=== PATIENT | male | born 1965 | race Caucasian/White ===

== ENCOUNTER 2019-12-17 10:34 | Outpatient (REF) | payer OTHER, SELFPAY | END 2019-12-17 10:35 | disposition home or self-care (01) | LOC: HO.LAB 10:34 | PROVIDERS: PCP Internal Medicine; Visit Provider Internal Medicine | DX: Z20.828 Contact with and (suspected) exposure to other viral communicable diseases (principal) | CPT/HCPCS: 87635 ==

== ENCOUNTER 2019-12-20 08:15 | Outpatient (REF) | payer OTHER, SELFPAY ==
[2019-12-20 09:45] LABS: HBS Num1 1.93 mIU/mL (0-7.99); HBc Num1 0.04 S/CO (0.00-0.79); HBsAGNum1 0.23 S/CO (0.00-0.99); HIV AB/AG Nonreactive (Nonreactive); HIV Num 1 0.08 S/CO (0.00-0.99); Hepatitis B Core Antibody Nonreactive (Nonreactive); Hepatitis B Surface Antigen Negative (Negative); ~Hepatitis B Surface Antibody NONREACTIVE (Nonreactive)
[2019-12-20 11:50] LABS: CT PCR NOT DETECTED (Not Detect.); NG PCR NOT DETECTED (Not Detect.)
[2019-12-21 04:27] LABS: Syphilis Screen Nonreactive (Nonreactive)
[2019-12-26 17:07] LABS: FIB-ALT 28 U/L (9-46); FIB-Alpha-2-Macroglobulin 251 mg/dL (106-279); FIB-Apolipoprotein A1 153 mg/dL (94-176); FIB-GGT 29 U/L (3-85); FIB-Haptoglobin 82 mg/dL (43-212); FIB-Total Bilirubin 0.8 mg/dL (0.2-1.2); Liver Fibrosis Score 0.48; Liver Fibrosis Stage F1-F2; Nec Inflam Act Grade A0; Nec Inflam Act Score 0.17
[2020-04-30 11:32] LABS: HCV Log PCR <1.18 NOT DETECTED; HepC Viral Load <15 NOT DETECTED
== END 2019-12-20 08:16 | disposition home or self-care (01) ==
LOC: HO.LAB 08:15
PROVIDERS: PCP Internal Medicine; Visit Provider Internal Medicine Infectious Disease
DX: B19.20 Unspecified viral hepatitis C without hepatic coma (principal); Z11.8 Encounter for screening for other infectious and parasitic diseases; Z11.4 Encounter for screening for human immunodeficiency virus [HIV]; Z11.59 Encounter for screening for other viral diseases; Z11.1 Encounter for screening for respiratory tuberculosis; Z11.3 Encounter for screening for infections with a predominantly sexual mode of transmission
CPT/HCPCS: 36415; 81596; 86481; 86704; 86706; 86780; 87340; 87389; 87491; 87522; 87591

== ENCOUNTER → 2020-03-03 09:53 | Outpatient (BNVA) | payer OTHER, SELFPAY | PROVIDERS: PCP Internal Medicine; Referring Provider Internal Medicine; Visit Provider Internal Medicine Gastroenterology | DX: Z76.89 Persons encountering health services in other specified circumstances (principal) ==

== ENCOUNTER → 2020-05-07 10:39 | Outpatient (BNVA) | payer OTHER, SELFPAY | PROVIDERS: PCP Internal Medicine; Visit Provider Internal Medicine Gastroenterology ==

== ENCOUNTER 2020-05-19 11:30 | Outpatient (REF) | payer OTHER, SELFPAY | END 2020-05-19 11:31 | disposition home or self-care (01) | LOC: HO.LAB 11:30 | PROVIDERS: Visit Provider Internal Medicine | DX: Z20.822 Contact with and (suspected) exposure to COVID-19 (principal) | CPT/HCPCS: 36415; C9803; U0003; U0005 ==

== ENCOUNTER 2020-05-29 08:45 | Outpatient (REF) | payer OTHER, SELFPAY ==
[2020-05-29 12:41] LABS: SARS COV2 PCR INHOUSE POSITIVE (Negative)
== END 2020-05-29 08:46 | disposition home or self-care (01) ==
LOC: HO.LAB 08:45
PROVIDERS: Visit Provider Internal Medicine
DX: Z20.822 Contact with and (suspected) exposure to COVID-19 (principal)
CPT/HCPCS: C9803; U0003

== ENCOUNTER 2020-06-27 07:36 | Day surgery (SDC) | payer OTHER, SELFPAY ==
--- NOTE | 2020-06-26 09:34 | HO.ANESPROP2 ---
Documented by User: Suad Smallwood 06/26/20 09:36 HPI - Anesthesia Eval Consult details Narrative: 55yo M for Colonoscopy PMFSH Active Problems Active Problems: All Active Problems (Updated 05/07/20 @ 11:19 by Bessie Escudero MD) Screening for colon cancer (Acute) History of hepatitis C virus infection (Acute) Liver fibrosis (Acute) Past Medical History Medical History History of hepatitis C virus infection Liver fibrosis Screening for colon cancer Family History Family History Father Medical history unknown Mother Heart problem Surgical History Surgical History History of liver biopsy Hx of colonoscopy Social History Social History Household Members: Spouse, Family and Children Alcohol intake: current Alcohol intake frequency: does not drink Smoking Status: Current some day smoker Use of substances other than those prescribed or required for medical reasons: Yes Substance Use Type: Marijuana Advance Directives: No Advance Directives Information Provided: Yes Meds Allergies Allergy/AdvReac Type Severity Reaction Status Date / Time No Known Allergies Allergy Verified 05/07/20 10:39 [No Known Allergies*] Home Medications Medication Instructions Recorded Confirmed Last Taken Type megestrol 1 ml PO BID 05/28/20 05/28/20 Unknown History Exam Exam Date and Time: June 26, 2020 0934 Pertinent Lab Results Pertinent Lab Results: Laboratory Tests 10/02/19 06:50 Total Bilirubin 1.2 H AST 31 ALT 26 Alkaline Phosphatase 73 D Total Protein 7.3 Albumin 4.6 Assessment and Plan Assessment Anesthesia Assessment: Chart Reviewed Documented by User: Yulia Juárez 06/27/20 08:51 PMFSH Past Medical History Medical History History of hepatitis C virus infection Liver fibrosis Screening for colon cancer Family History Family History Father Medical history unknown Mother Heart problem Surgical History Surgical History History of liver biopsy Hx of colonoscopy Social History Social History Household Members: Spouse, Family and Children Alcohol intake: current Alcohol intake frequency: does not drink Smoking Status: Current some day smoker Use of substances other than those prescribed or required for medical reasons: Yes Substance Use Type: Marijuana Advance Directives: No Advance Directives Information Provided: Yes Meds Allergies Allergy/AdvReac Type Severity Reaction Status Date / Time No Known Allergies Allergy Verified 05/07/20 10:39 [No Known Allergies*] Home Medications Medication Instructions Recorded Confirmed Last Taken Type megestrol 1 ml PO BID 05/28/20 05/28/20 Unknown History Exam Airway Mallampati Class: II (Edentulous upper) Neck ROM: Full Loose/Missing/Broken Teeth: Yes and Upper Heart: RRR Lungs: CTA Assessment and Plan Assessment Anesthesia Assessment: Anesthesia Plan Discussed and Chart Reviewed Final Anesthetic Review NPO: Yes ASA Class: II Final Preanesthetic Review: Meds/Allgs Chart Reviewed, Consent Obtained/Reviewed and Anes Risks/Benef Reviewed Patient Risk: Low Procedure Risk: Low Anesthetic Plan Anesthetic Plan: MAC: Disposition: Standard PACU
[2020-06-27 08:09] VITALS: BP 118/80; PULSE 69; RESP 118; TEMP 36.4; O2SAT 98; BMI 22.6
[2020-06-27] MEDS: Lactated Ringers 1,000 ML 100 ML IVCONT (08:33)
--- NOTE | 2020-06-27 09:20 | W.PM.OPN ---
Operative Note Operative Note Date of Service: 06/27/20 Narrative: Pre-op diagnosis: Colon cancer screening, chronic constipation Post-op diagnosis: other (Colon polyps, diverticulosis, hemorrhoids) Procedure: COLONOSCOPY TO CECUM WITH SNARE POLYPECTOMY Consent: Indications for the procedure and potential complications of bleeding, perforation, reaction to medications and missed diagnosis were discussed with the patient and informed consent was obtained. Instrument: Olympus PCF H 190 L variable stiffness pediatric colonoscope Monitoring: Vital signs and clinical assessment, intermittent blood pressure monitoring, continuous EKG monitoring, Pulse oximetry and Carbon Dioxide monitoring were done throughout the procedure. Colon withdrawl time was 18 minutes. Procedure: The patient was placed in the left lateral decubitis position and pre-procedure medications were administered. After a digital rectal examination of the ano-rectum, the video colonoscope was inserted into the rectum and advanced through the colon to the cecum. The colonoscope was slowly withdrawn in a retrograde panoramic fashion and the colon mucosa was carefully examined including a retroflexed view of the rectum. Findings and interventions are described below. Procedure Difficulty: Without difficulty Findings: Terminal Ileum: Not evaluated Cecum: Normal Ascending Colon: Normal Transverse Colon: A 12-15 mm sessile polyp removed with a hot snare Descending Colon: Normal Sigmoid Colon: Moderate diverticulosis Rectum: 3 cm hemorrhagic appearing pedunculated polyp (on a short stalk) at 10 cms removed with a hot snare. Ano-rectum: Moderate internal hemorrhoids Colon preparation: Excellent Impression and Post Procedure Diagnosis: Colonoscopy Findings: One medium sized and one large sized polyps removed Moderate diverticulosis seen in the sigmoid colon Moderate hemorrhoids on retroflexed exam. Plan: Await pathology results Patient has an appointment on 07/30/20 in the GI Clinic with Bessie Escudero M.D.. Repeat Colonoscopy interval based on path results - in 1-2 years if polyps are adenomatous and 10 years if polyps are hyperplastic. Colon polyps and diverticulosis handouts were given in the discharge area Surgeon: Rajeev Walters MD Anesthesia: MAC (Dr Juárez) and regional Fugitive Detective: Jeb Ochoa Estimated blood loss (mL): 0 Pathology: other (A. TC polyp x 1, B. Rectal polyp x 1) Condition: stable Disposition: PACU
--- NOTE | 2020-06-27 09:20 | MHC.SHP ---
Pre-Procedural Eval Section A The patient is an INPATIENT: No The History & Physical has been completed within 30 days and I have reviewed it.: No Section B Chief Complaint: Screening Details of Present Illness: Colon cancer screening, chronic constipation Relevant Family History (Specify if Yes): No Relevant Social History: None Present Medications: see Short Stay Collaborative assessment Medical History: Significant History (History of hepatitis C virus infection Liver fibrosis Screening for colon cancer) History of Previous Operations: Relevant previous surgery/procedure and date(s) (Liver bx, hx of colonoscopy) Allergies: Allergies Allergy/AdvReac Type Severity Reaction Status Date / Time No Known Allergies Allergy Verified 05/07/20 10:39 [No Known Allergies*] Review of Systems Sugical H&P ROS: Negative: Constitution, Cardiovascular and Respiratory and Yes, Specify: Gastrointestinal (Chronic constipation) Exam Surgical H&P Exam: Normal: Heart, Normal: Lungs, Normal: Extremities and Normal: Abdomen Plan Diagnosis/Plan: Unchanged I have reviewed the history and physical and performed a pertinent physical examination on my patient. No changes have occurred unless specified.
[2020-06-27 10:00] VITALS: BP 94/58; PULSE 60; RESP 18; TEMP 36.6; O2SAT 98
[2020-06-27 10:15] VITALS: BP 111/66; PULSE 63; RESP 18; TEMP 36.6; O2SAT 99
== END 2020-06-27 10:57 | disposition home or self-care (01) ==
LOC: HO.SSS 07:36
PROVIDERS: PCP Internal Medicine; Visit Provider Internal Medicine Gastroenterology
PROC: 0DJD8ZZ Inspection of Lower Intestinal Tract, Via Natural or Artificial Opening Endoscopic (ICD-10-PCS; CPT 45378; principal; 2020-06-27 09:10)
DX: Z12.11 Encounter for screening for malignant neoplasm of colon (principal); Z86.010 Personal history of colon polyps; D12.3 Benign neoplasm of transverse colon; D12.8 Benign neoplasm of rectum; K59.09 Other constipation; K57.30 Diverticulosis of large intestine without perforation or abscess without bleeding; K64.8 Other hemorrhoids; K74.00 Hepatic fibrosis, unspecified; Z86.19 Personal history of other infectious and parasitic diseases; F12.90 Cannabis use, unspecified, uncomplicated
CPT/HCPCS: 45385; 88305

== ENCOUNTER → 2020-08-07 13:48 | Outpatient (BNVA) | payer OTHER, SELFPAY | PROVIDERS: PCP Internal Medicine; Visit Provider Internal Medicine Gastroenterology | DX: Z12.11 Encounter for screening for malignant neoplasm of colon (principal); K74.00 Hepatic fibrosis, unspecified; Z86.19 Personal history of other infectious and parasitic diseases | CPT/HCPCS: 99212 ==

== ENCOUNTER 2020-09-05 11:04 | Day surgery (SDC) | payer OTHER, SELFPAY ==
[2020-08-29 10:13] VITALS: BMI 21.1
--- NOTE | 2020-09-04 09:04 | HO.ANESPROP2 ---
Documented by User: Suad Smallwood 09/04/20 09:05 HPI - Anesthesia Eval Consult details Narrative: 55yo M for EGD s/p colo with MAC 06/27/20 PMFSH Active Problems Active Problems: All Active Problems (Updated 08/07/20 @ 14:35 by Rajeev Walters MD) Screening for colon cancer (Acute) History of hepatitis C virus infection (Acute) Liver fibrosis (Acute) Past Medical History Medical History History of hepatitis C virus infection Liver fibrosis Screening for colon cancer Family History Family History Father Medical history unknown Mother Heart problem Surgical History Surgical History History of liver biopsy History of surgery Hx of colonoscopy Social History Social History Household Members: Spouse, Family and Children Are you a primary senior care assistant to a significant other at home: No Do you presently have visiting nurse or other home services: No Alcohol intake: current Alcohol intake frequency: does not drink Substance Use Type: Marijuana Have you been hit, kicked, punched, or otherwise hurt by someone within the past year? If so, by whom?: No Are you DNR?: No Advance Directives: No Advance Directives Information Provided: No Advance Directives on File: No Recently lost weight without trying: Yes How much weight loss: 14-23 pounds Eating poorly because of decreased appetite: No Nutrition screen score: 4 Meds Allergies Allergy/AdvReac Type Severity Reaction Status Date / Time No Known Allergies Allergy Verified 09/05/20 11:38 [No Known Allergies*] Home Medications Medication Instructions Recorded Confirmed Last Taken Type No Known Home Meds 08/29/20 08/29/20 Unknown History Exam Exam Date and Time: September 04, 2020 0904 Height,Weight and Vital Signs: Height 5 ft 7 in Weight 61.235 kg Assessment and Plan Assessment Anesthesia Assessment: Chart Reviewed Documented by User: Mile Sabra 09/05/20 12:04 [facility] Past Medical History Medical History History of hepatitis C virus infection Liver fibrosis Screening for colon cancer Family History Family History Father Medical history unknown Mother Heart problem Surgical History Surgical History History of liver biopsy History of surgery Hx of colonoscopy Social History Social History Household Members: Spouse, Family and Children Are you a primary senior care assistant to a significant other at home: No Do you presently have visiting nurse or other home services: No Alcohol intake: current Alcohol intake frequency: does not drink Substance Use Type: Marijuana Have you been hit, kicked, punched, or otherwise hurt by someone within the past year? If so, by whom?: No Are you DNR?: No Advance Directives: No Advance Directives Information Provided: No Advance Directives on File: No Recently lost weight without trying: Yes How much weight loss: 14-23 pounds Eating poorly because of decreased appetite: No Nutrition screen score: 4 Meds Allergies Allergy/AdvReac Type Severity Reaction Status Date / Time No Known Allergies Allergy Verified 09/05/20 11:38 [No Known Allergies*] Home Medications Medication Instructions Recorded Confirmed Last Taken Type No Known Home Meds 08/29/20 08/29/20 Unknown History Exam Airway Mallampati Class: II (Missing multiple teeth, orhing loose) TM Dist: >3cm Neck ROM: Full Heart: rrr Lungs: cta Assessment and Plan Assessment Anesthesia Assessment: Anesthesia Plan Discussed and Chart Reviewed Final Anesthetic Review NPO: Yes ASA Class: II Final Preanesthetic Review: No Changes in Pt Med Stat and Consent Obtained/Reviewed Patient Risk: Intermediate Procedure Risk: Intermediate Anesthetic Plan Anesthetic Plan: MAC: Disposition: Standard PACU
[2020-09-05 11:34] VITALS: BP 114/78; PULSE 60; RESP 18; TEMP 36.4; O2SAT 99
[2020-09-05] MEDS: Lactated Ringers 1,000 ML 100 ML IVCONT (11:44)
--- NOTE | 2020-09-05 12:55 | PM.OP ---
Brief Operative Note Date of Service: 09/05/20 Pre-op diagnosis: decreased appetite, unintentional weight loss of 20 lb over the past 3 months Post-op diagnosis: other ( gastritis, gastric polyps) Procedure: FLEXIBLE TRANSORAL UPPER GASTROINTESTINAL ENDOSCOPY WITH BIOPSIES Consent: Indications for the procedure and potential complications of bleeding, perforation, reaction to medications and missed diagnosis were discussed with the patient and informed consent was obtained. Instrument: Olympus GIF H 190 mid size upper endoscope Monitoring: Vital signs and clinical assessment, continuous EKG monitoring, Pulse oximetry, Carbon Dioxide monitoring and blood pressure monitoring were done throughout the procedure. Procedure: The patient was placed in the left lateral decubitis position and pre-procedure medications were administered and a bite block was placed. The endoscope was inserted into the mouth and advanced under direct vision to the third part of duodenum. A careful inspection was made as the upper endoscope was withdrawn including a retroflexed examination of the proximal stomach; Findings and interventions are described below. Findings: Larynx: Normal Esophagus: GE junction at 40 cms . No esophagitis or Baig Stomach: Mild gastric erythema. Biopsies were obtained. Two 5 - 10 mm benign appearing polyps in the fundus - biopsied. Grade 2 flap valve on retroflexed examination of the cardia. Duodenum: Normal bulb and descending duodenum. Biopsies were obtained from 3rd part of duodenum check for celiac sprue Intervention: Biopsies as noted above Impression and Post Procedure Diagnosis: Endoscopy Findings: STOMACH: Gastritis, two 5 - 10 mm benign appearing polyps in the fundus - biopsied. DUODENUM: Normal - biopsied to check for celiac sprue Plan: Await pathology results Patient has an appointment on 10/13/20 in the GI Clinic with Rajeev Walters M.D.-. GERD and Gastric polyps handouts were given in the discharge area Surgeon: Rajeev Walters MD Anesthesia: MAC (Shira Nicolas CRNA) Was an E Business Specialist used for this Procedure?: Yes E Business Specialist: Jeb Ochoa Estimated blood loss (mL): 0 Pathology: other (A- SMALL BOWEL BXS R/O CELIAC B- GASTRIC ANTRUM BXS R/O H. PYLIRI C- GASTRIC POLYP) Condition: stable Disposition: PACU
--- NOTE | 2020-09-05 12:55 | MHC.SHP ---
Pre-Procedural Eval Section A Date of Service: 09/05/20 The patient is an INPATIENT: No Changes since office visit: Yes Patient answered all questions; No Cold of Flu in the past 2 weeks, No New Medical Problems and No Changes in Medication The History & Physical has been completed within 30 days and I have reviewed it.: Yes Section B Chief Complaint: hepatic fibrosis Allergies: Allergies Allergy/AdvReac Type Severity Reaction Status Date / Time No Known Allergies Allergy Verified 09/05/20 11:38 [No Known Allergies*] Exam Surgical H&P Exam: Normal: HEENT, Normal: Heart, Normal: Lungs and Normal: Abdomen Plan Diagnosis/Plan: Unchanged I have reviewed the history and physical and performed a pertinent physical examination on my patient. No changes have occurred unless specified.
[2020-09-05 13:35] VITALS: BP 95/58; PULSE 64; RESP 14; TEMP 36.1; O2SAT 99
[2020-09-05 13:50] VITALS: BP 107/69; PULSE 64; RESP 16; TEMP 36.1; O2SAT 99
--- NOTE | 2020-09-05 17:59 | P.OP_ITS ---
Operative Note Operative Note Date of Service: 09/05/20 Narrative: Pre-op diagnosis: decreased appetite, unintentional weight loss of 20 lb over the past 3 months Post-op diagnosis: other ( gastritis, gastric polyps) Procedure: FLEXIBLE TRANSORAL UPPER GASTROINTESTINAL ENDOSCOPY WITH BIOPSIES Consent: Indications for the procedure and potential complications of bleeding, perforation, reaction to medications and missed diagnosis were discussed with the patient and informed consent was obtained. Instrument: Olympus GIF H 190 mid size upper endoscope Monitoring: Vital signs and clinical assessment, continuous EKG monitoring, Pulse oximetry, Carbon Dioxide monitoring and blood pressure monitoring were done throughout the procedure. Procedure: The patient was placed in the left lateral decubitis position and pre-procedure medications were administered and a bite block was placed. The endoscope was inserted into the mouth and advanced under direct vision to the third part of duodenum. A careful inspection was made as the upper endoscope was withdrawn including a retroflexed examination of the proximal stomach; Findings and interventions are described below. Findings: Larynx: Normal Esophagus: GE junction at 40 cms . No esophagitis or Baig Stomach: Mild gastric erythema. Biopsies were obtained. Two 5 - 10 mm benign appearing polyps in the fundus - biopsied. Grade 2 flap valve on retroflexed examination of the cardia. Duodenum: Normal bulb and descending duodenum. Biopsies were obtained from 3rd part of duodenum check for celiac sprue Intervention: Biopsies as noted above Impression and Post Procedure Diagnosis: Endoscopy Findings: STOMACH: Gastritis, two 5 - 10 mm benign appearing polyps in the fundus - biopsied. DUODENUM: Normal - biopsied to check for celiac sprue Plan: Await pathology results Patient has an appointment on 10/13/20 in the GI Clinic with Rajeev Walters M.D.- . GERD and Gastric polyps handouts were given in the discharge area Surgeon: Rajeev Walters MD Anesthesia: MAC (Shira Nicolas CRNA) Was an Maintenance Chief used for this Procedure?: Yes Maintenance Chief: Jeb Ochoa Estimated blood loss (mL): 0 Pathology: other (A- SMALL BOWEL BXS R/O CELIAC B- GASTRIC ANTRUM BXS R/O H. PYLIRI C- GASTRIC POLYP) Condition: stable Disposition: PACU
== END 2020-09-05 14:20 | disposition home or self-care (01) ==
PROVIDERS: PCP Internal Medicine; Visit Provider Internal Medicine Gastroenterology
PROC: 0DJ08ZZ Inspection of Upper Intestinal Tract, Via Natural or Artificial Opening Endoscopic (ICD-10-PCS; CPT 43235; principal; 2020-09-05 12:20)
DX: R63.0 Anorexia (principal); R63.4 Abnormal weight loss; K74.60 Unspecified cirrhosis of liver; K74.01 Hepatic fibrosis, early fibrosis; K21.9 Gastro-esophageal reflux disease without esophagitis; K31.7 Polyp of stomach and duodenum; K29.50 Unspecified chronic gastritis without bleeding; Z86.19 Personal history of other infectious and parasitic diseases; F12.90 Cannabis use, unspecified, uncomplicated
CPT/HCPCS: 43239; 88305; 88342; J3010

== ENCOUNTER 2020-10-13 13:04 | Outpatient (REF) | payer OTHER, SELFPAY ==
[2020-10-13 14:43] LABS: MANUAL DIFF FLAG NO
[2020-10-13 14:56] LABS: Basophils Percent Auto 0.2 % (0-2); Eosinophils Absolute Auto 0.1 X10*3/uL (0.0-0.4); Eosinophils Percent Auto 1.3 % (0-4); Hematocrit 43.3 % (42-52); Hemoglobin 14.2 g/dl (14.0-18.0); Imm Gran Abs Auto 0.01 X10*3/uL (0.00-0.03); Imm Gran Pct Auto 0.2 % (0.0-0.4); Lymphocytes Absolute Auto 1.4 X10*3/uL (1.2-4.9); Lymphocytes Percent Auto 29.3 % (20-40); Mean Corpuscular HGB Conc 32.8 g/dl (31.0-36.0); Mean Corpuscular Hemoglobin 30.8 pg (27.0-33.0); Mean Corpuscular Volume 93.9 fL (80-98); Mean Platelet Volume 11.3 fL (9.4-12.4); Monocytes Absolute Auto 0.5 X10*3/uL (0.1-1.2); Monocytes Percent Auto 9.8 % (2-11); Neutrophils Absolute Auto 2.8 X10*3/uL (2.0-8.3); Neutrophils Percent Auto 59.2 % (45-73); Platelet Count 175 X10*3/uL (160-400); Red Blood Count 4.61 X10*6/uL (4.60-5.80); Red Cell Distribution Width 12.1 % (11.0-16.0); White Blood Count 4.7 X10*3/uL (4.8-10.8)
[2020-10-13 15:17] LABS: Alanine Aminotransferase 22 U/L (0-40); Albumin Level 4.7 g/dL (3.5-5.0); Alkaline Phosphatase 96 U/L (39-117); Anion Gap 12 (12-20); Aspartate Amino Transferase 28 U/L (5-37); Bilirubin Total 0.9 mg/dL (0.0-1.0); Blood Urea Nitrogen 13 mg/dL (9-16); Carbon Dioxide 27 mmol/L (22-29); Chloride 108 mmol/L (96-108); Estimated Glomerular Filt Rate > 60; Glucose Random 91 mg/dL (60-115); Lipase 33 U/L (8-78); Potassium 4.8 mmol/L (3.3-5.1); Sodium 142 mmol/L (135-145); Total Protein 7.5 g/dL (6.5-8.0)
[2020-10-13 15:37] LABS: Vitamin D 25-OH Total 32.8 ng/mL (>30)
[2020-10-13 15:48] LABS: Folate 15.8 ng/mL (> or = 4.0); Vitamin B12 412 pg/mL (200-900)
== END 2020-10-13 13:05 | disposition home or self-care (01) ==
LOC: HO.LAB 13:04
PROVIDERS: PCP Internal Medicine; Referring Provider Internal Medicine; Visit Provider Internal Medicine Gastroenterology
DX: K74.00 Hepatic fibrosis, unspecified (principal); R63.4 Abnormal weight loss; Z86.19 Personal history of other infectious and parasitic diseases; Z86.010 Personal history of colon polyps; Z98.890 Other specified postprocedural states
CPT/HCPCS: 36415; 80053; 82105; 82306; 82607; 82746; 83690; 85025; 99212

== ENCOUNTER 2020-11-07 08:06 | Outpatient (REF) | payer OTHER, SELFPAY ==
--- NOTE | ~2020-11-07 | CT_ITS ---
EXAMINATION: CT ABDOMEN AND PELVIS WITH CONTRAST CLINICAL INFORMATION: Hepatic fibrosis COMPARISON: CT 08/16/2018. Outside ultrasound 05/14/2020. TECHNIQUE: Multidetector volumetric images were obtained from the superior aspect of the liver through the pubic symphysis following administration 85 mL of Omnipaque 350 intravenous contrast. Sagittal and coronal reformatted images were obtained on the technologist's workstation. Oral contrast: No This CT examination was performed using dose optimization techniques as appropriate, variously including the following: *Automated exposure control *Adjustment of mA and/or kV according to patient size (this includes techniques or standardized protocols for targeted exams where dose is matched to indication/reason for exam; i.e. extremities or head) *Use of iterative reconstruction technique DLP: 266 mGy-cm FINDINGS: LUNG BASES: Motion artifact limits evaluation of the lung bases. There is no focal consolidation or mass. No pleural effusion or pneumothorax. Normal heart size. LIVER, GALLBLADDER, AND BILIARY TREE: The liver is normal in size, shape, and attenuation. Corresponding to the echogenic abnormality seen inferiorly in the right lobe of liver, in image 32/81, thin section image 259, there is a 4 mm hyperenhancing focus. No biliary ductal dilatation. The gallbladder is unremarkable with no evidence of radiopaque gallstones, gallbladder wall thickening, or obvious pericholecystic inflammatory changes. PANCREAS: Unremarkable. SPLEEN: Unremarkable. ADRENAL GLANDS: Unremarkable. KIDNEYS AND URETERS: There are tiny water density simple cysts in the kidneys bilaterally; no imaging follow-up recommended. No hydronephrosis or calculi. BLADDER: Unremarkable. GASTROINTESTINAL TRACT: The small and large bowel are unremarkable. The appendix is unremarkable. ABDOMINAL WALL: No significant hernia is appreciated. LYMPH NODES: Normal. VASCULAR: Unremarkable. PELVIC VISCERA: The prostate and seminal vesicles are unremarkable. OSSEOUS STRUCTURES: There is degenerative disc disease at L5-S1. No acute or suspicious osseous abnormality. CT/CT abdomen pelvis w con IMPRESSION: Subtle 4 mm hyperenhancing lesion inferiorly in the right lobe of liver, segment 6. This is in a similar location to the ultrasound finding on the prior outside ultrasound 05/14/2020. The CT and ultrasound appearance are both consistent with a small flash enhancing hemangioma.
[2020-11-07] MEDS: iohexoL 350 MG/ML 100 ML INFUS..BTL IV (11:16)
== END 2020-11-07 08:07 | disposition home or self-care (01) ==
LOC: HO.CT 08:06
PROVIDERS: Visit Provider Internal Medicine Gastroenterology
DX: K74.00 Hepatic fibrosis, unspecified (principal); R63.4 Abnormal weight loss
CPT/HCPCS: 74177; Q9967

== ENCOUNTER → 2020-12-25 11:25 | Outpatient (BNVA) | payer OTHER, SELFPAY | PROVIDERS: PCP Internal Medicine; Visit Provider Internal Medicine Gastroenterology ==

== ENCOUNTER 2021-04-22 15:47 | Outpatient (REF) | payer OTHER, SELFPAY ==
--- NOTE | ~2021-04-22 | US_ITS ---
EXAMINATION: US SCROTUM CLINICAL INFORMATION: Other specified disorders of the male genital organs. Left testicle mass. COMPARISON: Ultrasound scrotum 02/10/2012. TECHNIQUE: A sonogram of the scrotum was performed assessing acosta-scale appearance and color Doppler flow. Spectral Doppler analysis of the arterial and venous flow were performed in the testes bilaterally. FINDINGS: RIGHT: Right testicle measures 4.4 x 2.3 x 3.7 cm, volume 19.3 mL. No focal testicular parenchymal lesions are visualized. Spectral Doppler analysis of the arterial and venous flow is normal in the right testis. There is a right appendix testis. The right epididymis appears slightly prominent. There is a 2 x 3 mm right epididymal head cyst. There is a right hydrocele. No right varicocele is seen. Right epididymal Doppler flow is slightly increased. LEFT: Left testicle measures 4.1 x 2.5 x 3.6 cm, volume 19.2 mL. Spectral Doppler analysis of the arterial and venous flow is normal in the left testis. There is a left appendix testis. Left epididymal head is normal in size. There is a 3 mm left epididymal head cyst. There is a left hydrocele. There is a focal left scrotal calcification. This probably represents a scrotal myke related to old trauma or infection. No left varicocele is seen. Left epididymal Doppler flow is normal. US/US scrotum IMPRESSION: Normal-appearing testicles. No mass seen. Bilateral hydroceles. Bilateral small epididymal head cyst. Slightly prominent hypervascular right epididymis questionable for epididymitis. Left scrotal calcification probably representing a scrotal myke. This is usually associated with history of old trauma or infection.
== END 2021-04-22 15:48 | disposition home or self-care (01) ==
LOC: HO.US 15:47
PROVIDERS: PCP Internal Medicine; Visit Provider Nurse Practitioner Family
DX: N50.89 Other specified disorders of the male genital organs (principal); N50.3 Cyst of epididymis; N43.3 Hydrocele, unspecified
CPT/HCPCS: 76870

== ENCOUNTER → 2021-07-09 09:13 | Outpatient (BNVA) | payer OTHER, SELFPAY | PROVIDERS: PCP Internal Medicine; Visit Provider Urology | DX: Z13.9 Encounter for screening, unspecified (principal) ==

== ENCOUNTER 2022-06-01 06:13 | Outpatient (REF) | payer OTHER, SELFPAY ==
[2022-06-01 06:23] LABS: MANUAL DIFF FLAG NO
[2022-06-01 07:55] LABS: Basophils Percent Auto 0.2 % (0-2); Eosinophils Absolute Auto 0.1 X10*3/uL (0.0-0.4); Eosinophils Percent Auto 2.3 % (0-4); Hematocrit 43.2 % (42.0-52.0); Hemoglobin 14.3 g/dl (14.0-18.0); Imm Gran Abs Auto 0.01 X10*3/uL (0.00-0.03); Imm Gran Pct Auto 0.2 % (0.0-0.4); Lymphocytes Absolute Auto 1.7 X10*3/uL (1.2-4.9); Mean Corpuscular HGB Conc 33.1 g/dl (31.0-36.0); Mean Corpuscular Volume 93.5 fL (80.0-98.0); Mean Platelet Volume 11.5 fL (9.4-12.4); Monocytes Absolute Auto 0.5 X10*3/uL (0.1-1.2); Monocytes Percent Auto 10.2 % (2-11); Neutrophils Absolute Auto 2.9 x10*3/uL (2.0-8.3); Neutrophils Percent Auto 55.1 % (45-73); Platelet Count 194 X10*3/uL (160-400); Red Blood Count 4.62 X10*6/uL (4.60-5.80); Red Cell Distribution Width 12.1 % (11.0-16.0); White Blood Count 5.2 X10*3/uL (4.8-10.8)
[2022-06-01 08:17] LABS: Alanine Aminotransferase 20 U/L (0-40); Albumin Level 4.4 g/dL (3.5-5.0); Alkaline Phosphatase 83 U/L (39-117); Anion Gap 13 (12-20); Aspartate Amino Transferase 27 U/L (5-37); Bilirubin Total 0.9 mg/dL (0.0-1.0); Blood Urea Nitrogen 16 mg/dL (9-16); Calcium 9.5 mg/dL (8.4-10.2); Carbon Dioxide 27 mmol/L (22-29); Chloride 106 mmol/L (96-108); Cholesterol 174 mg/dL; Estimated Glomerular Filt Rate > 60; Glucose Fasting 89 mg/dL (60-99); HDL Cholesterol 50 mg/dL; LDL Cholesterol Calculated 112 mg/dl; Sodium 141 mmol/L (135-145); Total Protein 7.1 g/dL (6.5-8.0); Triglycerides 64 mg/dL
[2022-06-01 08:49] LABS: Prostate Specific Antigen 0.64 ng/mL (<0.05-4.0); Vitamin B12 535 pg/mL (200-900); Vitamin D 25-OH Total 30.6 ng/mL (>30)
== END 2022-06-01 06:14 | disposition home or self-care (01) ==
LOC: HO.LAB 06:13
PROVIDERS: PCP Internal Medicine; Visit Provider Nurse Practitioner Family
DX: Z00.00 Encounter for general adult medical examination without abnormal findings (principal); Z12.5 Encounter for screening for malignant neoplasm of prostate
CPT/HCPCS: 36415; 80053; 80061; 82306; 82607; 82746; 84153; 84443; 85025

== ENCOUNTER → 2022-07-16 07:48 | Outpatient (BNVA) | payer OTHER, SELFPAY | PROVIDERS: PCP Internal Medicine; Referring Provider Internal Medicine; Visit Provider Internal Medicine Gastroenterology | DX: Z12.11 Encounter for screening for malignant neoplasm of colon (principal); K74.60 Unspecified cirrhosis of liver; Z86.19 Personal history of other infectious and parasitic diseases | CPT/HCPCS: 99212 ==

== ENCOUNTER 2022-08-30 12:00 | Day surgery (SDC) | payer OTHER, SELFPAY ==
--- NOTE | 2022-08-27 09:15 | HO.ANESPROP2 ---
Documented by User: Suad Smallwood NP 08/27/22 09:18 HPI - Anesthesia Eval Consult details Narrative: 57yo M for Upper Endoscopy and Colonoscopy HCV cirrhosis PMFSH Active Problems Active Problems: All Active Problems (Updated 07/16/22 @ 08:30 by Rajeev Walters MD) Cirrhosis of liver without ascites (Acute) Screening for prostate cancer (Acute) Adult general medical exam (Acute) Testicle lump (Acute) Pruritic rash (Acute) Weight loss (Acute) Screening for colon cancer (Acute) History of hepatitis C virus infection (Acute) Liver fibrosis (Acute) Past Medical History Medical History History of hepatitis C virus infection Liver fibrosis Screening for colon cancer Family History Family History Father Medical history unknown Mother Heart problem Surgical History Surgical History History of liver biopsy History of surgery Hx of colonoscopy Social History Social History Household Members: Spouse, Family and Children Housing: Apartment Are you a primary healthcare risk control consultant to a significant other at home: No Do you presently have visiting nurse or other home services: No Alcohol intake: current Alcohol intake frequency: does not drink Patient Tobacco Use Status: Never used Tobacco e-Cigarette/Vaping Use: Never Used Second Hand Smoke Exposure: No Substance Use Type: Marijuana Are you DNR?: No Advance Directives: No Advance Directives Information Provided: Yes Current occupational status: employed Cognitive needs: No Hearing needs: No Vision needs: No Meds Allergies Allergy/AdvReac Type Severity Reaction Status Date / Time No Known Allergies Allergy Verified 07/16/22 07:54 [No Known Allergies*] Home Medications Medication Instructions Recorded Confirmed Last Taken Type No Known Home Meds 08/30/22 08/30/22 Unknown History Exam Exam Date and Time: August 27, 202215 Pertinent Lab Results Pertinent Lab Results: Laboratory Tests 06/01/22 06/01/22 06:22 06:22 WBC 5.2 Hgb 14.3 Hct 43.2 Plt Count 194 Sodium 141 Potassium 5.0 Chloride 106 Carbon Dioxide 27 BUN 16 Creatinine 1.12 Assessment and Plan Assessment Anesthesia Assessment: Chart Reviewed Documented by User: Yulia Juárez MD 08/30/22 13:12 PMFSH Active Problems Active Problems: All Active Problems (Updated 07/16/22 @ 08:30 by Rajeev Walters MD) Cirrhosis of liver without ascites (Acute) Screening for prostate cancer (Acute) Adult general medical exam (Acute) Testicle lump (Acute) Pruritic rash (Acute) Weight loss (Acute) Screening for colon cancer (Acute) History of hepatitis C virus infection (Acute) Liver fibrosis (Acute) Past Medical History Medical History History of hepatitis C virus infection Liver fibrosis Screening for colon cancer Family History Family History Father Medical history unknown Mother Heart problem Surgical History Surgical History History of liver biopsy History of surgery Hx of colonoscopy Social History Social History Household Members: Spouse, Family and Children Housing: Apartment Are you a primary healthcare risk control consultant to a significant other at home: No Do you presently have visiting nurse or other home services: No Alcohol intake: current Alcohol intake frequency: does not drink Patient Tobacco Use Status: Never used Tobacco e-Cigarette/Vaping Use: Never Used Second Hand Smoke Exposure: No Substance Use Type: Marijuana Are you DNR?: No Advance Directives: No Advance Directives Information Provided: Yes Current occupational status: employed Cognitive needs: No Hearing needs: No Vision needs: No Meds Allergies Allergy/AdvReac Type Severity Reaction Status Date / Time No Known Allergies Allergy Verified 07/16/22 07:54 [No Known Allergies*] Home Medications Medication Instructions Recorded Confirmed Last Taken Type No Known Home Meds 08/30/22 08/30/22 Unknown History
[2022-08-30 08:45] VITALS: BMI 20.8
[2022-08-30 12:10] VITALS: BP 115/97; PULSE 62; RESP 20; TEMP 36.6; O2SAT 98
--- NOTE | 2022-08-30 12:24 | MHC.SHP ---
Pre-Procedural Eval Section A Date of Service: 08/30/22 Section B Chief Complaint: Personal hx of colonic polyps,cirrhosis of liver Relevant Family History (Specify if Yes): No Relevant Social History: None Present Medications: see Short Stay Collaborative assessment Medical History: Significant History (History of hepatitis C virus infection Liver fibrosis) History of Previous Operations: Relevant previous surgery/procedure and date(s) (History of liver biopsy History of surgery Hx of colonoscopy) Allergies: Allergies Allergy/AdvReac Type Severity Reaction Status Date / Time No Known Allergies Allergy Verified 07/16/22 07:54 [No Known Allergies*] Review of Systems Sugical H&P ROS: Negative: Constitution, Cardiovascular, Respiratory and Gastrointestinal Exam Surgical H&P Exam: Normal: Heart, Normal: Lungs, Normal: Extremities and Normal: Abdomen Plan Diagnosis/Plan: Unchanged I have reviewed the history and physical and performed a pertinent physical examination on my patient. No changes have occurred unless specified. Time Spent With Patient Time: Total time managing care of this patient today ____ minutes.
--- NOTE | 2022-08-30 13:05 | W.PM.OPN ---
Operative Note Operative Note Date of Service: 08/30/22 Narrative: FLEXIBLE TRANSORAL UPPER GASTROINTESTINAL ENDOSCOPY AND COLONOSCOPY TILL CECUM Pre-op diagnosis: Colon cancer screening, history of colon polyps, cirrhosis - screen for varices Post-op diagnosis: Gastric polyps, diverticulosis, hemorrhoids Endoscopist:? Rajeev Walters MD Anesthesia:?MAC UPPER ENDOSCOPY Consent: Indications for the procedure and potential complications of bleeding, perforation, reaction to medications and missed diagnosis were discussed with the patient and informed consent was obtained. Instrument: Olympus GIF H 190 mid size upper endoscope Monitoring: Vital signs and clinical assessment, continuous EKG monitoring, Pulse oximetry, Carbon Dioxide monitoring and blood pressure monitoring were done throughout the procedure. Procedure: The patient was placed in the left lateral decubitis position and pre-procedure medications were administered and a bite block was placed. The endoscope was inserted into the mouth and advanced under direct vision to the third part of duodenum. A careful inspection was made as the upper endoscope was withdrawn including a retroflexed examination of the proximal stomach; Findings and interventions are described below. Findings: Larynx: Normal Esophagus: GE junction at 40 cms . No varices, esophagitis or Baig Stomach: Mild gastric erythema. Biopsies obtained during past EGD were negative for H Pylori. Two 5 - 10 mm benign appearing polyps in the fundus - benign on past biopsies.? No gastric varices and grade 2 flap valve on retroflexed examination of the cardia. Duodenum: Normal bulb and descending duodenum. ? Intervention: None needed COLONOSCOPY PROCEDURE NOTE Consent: Indications for the procedure and potential complications of bleeding, perforation, reaction to medications and missed diagnosis were discussed with the patient and informed consent was obtained. Instrument: Olympus PCF H 190 L variable stiffness pediatric colonoscope Monitoring: Vital signs and clinical assessment, intermittent blood pressure monitoring, continuous EKG monitoring, Pulse oximetry and Carbon Dioxide monitoring were done throughout the procedure. Colon withdrawl time was 13 minutes. Procedure: The patient was placed in the left lateral decubitis position and pre-procedure medications were administered. After a digital rectal examination of the ano-rectum, the video colonoscope was inserted into the rectum and advanced through the colon to the cecum. The colonoscope was slowly withdrawn in a retrograde panoramic fashion and the colon mucosa was carefully examined including a retroflexed view of the rectum. Findings and interventions are described below. Procedure Difficulty: : Without difficulty Findings: Terminal Ileum: Not evaluated Cecum: Normal Ascending Colon: Normal Transverse Colon: Moderate diverticulosis Descending Colon: Moderate diverticulosis Sigmoid Colon: Moderate diverticulosis Rectum: Normal Ano-rectum: Moderate internal hemorrhoids Colon preparation: Good Impression and Post Procedure Diagnosis: Endoscopy Findings: ESOPHAGUS: STOMACH: Mild gastric erythema. Biopsies obtained during past EGD were negative for H Pylori. Two 5 - 10 mm benign appearing polyps in the fundus - benign on past biopsies.? No gastric varices and grade 2 flap valve on retroflexed examination of the cardia. Colonoscopy Findings: No polyps removed Moderate diverticulosis seen in the left colon Moderate hemorrhoids on retroflexed exam. Plan: Await pathology results. Patient has an appointment on 10/28/22 in the GI Clinic with Rajeev Walters M.D. Repeat Colonoscopy interval based on path results - in 5 years due to a history of adenomatous colon polyps. Above findings were reviewed with the patient.
[2022-08-30 14:00] VITALS: BP 88/52; PULSE 56; RESP 20; TEMP 36.1; O2SAT 100
[2022-08-30 14:06] VITALS: BP 93/56; PULSE 52; RESP 20; O2SAT 100
[2022-08-30 14:11] VITALS: BP 92/60; PULSE 50; RESP 20; O2SAT 100
[2022-08-30 14:16] VITALS: BP 103/72; PULSE 47; RESP 20; O2SAT 100
[2022-08-30 14:22] VITALS: BP 108/71; PULSE 68; RESP 20; TEMP 36.1; O2SAT 100
== END 2022-08-30 14:47 | disposition home or self-care (01) ==
PROVIDERS: PCP Internal Medicine; Visit Provider Internal Medicine Gastroenterology
PROC: (CPT 45378; principal; 2022-08-30 13:10)
DX: Z12.11 Encounter for screening for malignant neoplasm of colon (principal); K57.30 Diverticulosis of large intestine without perforation or abscess without bleeding; K64.8 Other hemorrhoids; Z86.010 Personal history of colon polyps; K74.60 Unspecified cirrhosis of liver; K31.7 Polyp of stomach and duodenum
CPT/HCPCS: 45378; 43235

== ENCOUNTER 2022-10-28 08:02 | Outpatient (AMB) | payer OTHER, SELFPAY ==
--- NOTE | 2022-10-28 08:14 | MHC.OFFVIS ---
Intake Vital Signs 10/28/22 08:16 Height 5 ft 7 in Weight 128 lb BMI 20.0 BP 123/77 Blood Pressure Location Lt brachial Position Sitting Pulse 63 Intake Visit Reasons: S/P Double; Dr. Walters Intake Note: Patient follow up for Cirrhosis and Colonoscopy/EGD results. Patient cc: soft stool. Denies any other GI issues. Digital Tech Required: No Digital Tech Name: Sergey Martinez Accompanied by: Self / Same As Patient Allergies No Known Allergies [No Known Allergies*] Allergy (Verified 10/28/22 08:14) Medication List - Last Reconciled 10/28/22 by Rajeev Walters MD No Known Home Meds HPI S/P Double; Dr. Walters HPI Details FU GI CLINIC VISIT FOR THIS 57-YEAR-OLD VIET[place]ESE-SPEAKING MALE FOR FOLLOW-UP OF CIRRHOSIS DUE TO PAST HEPATITIS C IMAGING STUDIES:? 11/07/[address] SCAN SHOWED: Subtle 4 mm hyperenhancing lesion inferiorly in the right lobe of liver, segment 6. This is in a similar location to the ultrasound finding on the prior outside ultrasound 05/14/2020. The CT and ultrasound appearance are both consistent with a small flash enhancing hemangioma. [address] SCAN - no liver lesions ENDOSCOPIC STUDIES: 08/30/22 EGD AND COLON SHOWED: Endoscopy Findings: STOMACH: Mild gastric erythema. Biopsies obtained during past EGD were negative for H Pylori. Two 5 - 10 mm benign appearing polyps in the fundus - benign on past biopsies.? No gastric varices and grade 2 flap valve on retroflexed examination of the cardia. Colonoscopy Findings: No polyps removed Moderate diverticulosis seen in the left colon Moderate hemorrhoids on retroflexed exam. Plan: Repeat Colonoscopy interval based on path results - in 5 years due to a history of adenomatous colon polyps 08/2020 EGD SHOWED: Gastritis, and two 5 - 10 mm benign appearing polyps in the fundus - biopsied. BIOPSIES SHOWED: A.? Small bowel, biopsy:? Small intestinal mucosa within normal limits. B.? Stomach, antrum, biopsy:? Antral-type mucosa with mild chronic inactive inflammation; no Helicobacter organisms seen. C.? Stomach, polyp:? Hyperplastic mucosal polyp with background mild chronic active inflammation; no Helicobacter organisms seen. 06/27/20 COLONOSCOPY SHOWED: One medium sized and one large sized polyps removed Moderate diverticulosis seen in the sigmoid colon Moderate hemorrhoids on retroflexed exam. Plan:? Patient has an appointment on 07/30/20 in the GI Clinic with Bessie Escudero M.D.. Repeat Colonoscopy interval based on path results - in 1-2 years if polyps are adenomatous and 10 years if polyps are hyperplastic. Colon polyps and diverticulosis handouts were given in the discharge area Biopsies from rectal polyp showed TVA, pt was advised to schedule repeat colon in 6 months. TODAY'S VISIT: Telephone Independent Living Specialist, Sergey # [id number] EGD and Colon results reviewed with the patient. Denies heartburn, abd pain, change in bowel habits. Eating less since he does not feel hungry. Continues to loose weight. Smokes Marijuana 2 times a day (very little) PAST VISIT: Pt advised to schedule repeat colonoscopy to FU on large TVA in the rectum. ABD CT results reviewed. Denies any problems after the procedure. Complains of decreased appetite with weight loss from 150 lbs (6 months ago) to 133 lbs Colonoscopy results reviewed with the patient. Patient denies symptoms of heartburn, dysphagia, nausea, vomiting.? Denies recent change in bowel habits, constipation, diarrhea, black stools or rectal bleeding. Patient denies major cardiac or pulmonary problems, loud snoring or sleep apnea Denies problems with anesthesia in the past. Denies being on chronic anticoagulation. Patient denies known family history of liver disease, colon polyps, colon cancer or other GI malignancy [facility] Medical History (Updated 10/28/22 @ 09:16 by Rajeev Walters MD) History of hepatitis C virus infection Liver fibrosis Screening for colon cancer Surgical History History of esophagogastroduodenoscopy (EGD) History of liver biopsy History of surgery Hx of colonoscopy Family History Father Medical history unknown Mother Heart problem Social History Household Members: Spouse, Family and Children Housing: Apartment Are you a primary director of career services to a significant other at home: No Do you presently have visiting nurse or other home services: No Alcohol intake: current Alcohol intake frequency: does not drink Patient Tobacco Use Status: Never used Tobacco e-Cigarette/Vaping Use: Never Used Second Hand Smoke Exposure: No Substance Use Type: Marijuana Current occupational status: employed Cognitive needs: No Hearing needs: No Vision needs: No Review of Systems Const All systems reviewed & are unremarkable except as noted in HPI and below Physical Exam Vital Signs: Last Vital Signs Pulse 63 10/28/22 08:16 BP 123/77 10/28/22 08:16 BMI result Body Mass Index 20.0 Const General: healthy appearing and no acute distress Nutritional Appearance: average body habitus Orientation/consciousness: patient oriented x3 Limitations: language barrier HEENT Head: Yes normal to inspection Ears: hearing grossly normal bilaterally Eyes Sclerae: sclerae normal Pupils: Equal, round and reactive pupils present Neck Neck: Yes normal visual inspection Chest Chest palpation & inspection: normal inspection of the chest Resp Effort & Inspection: normal respiratory effort Auscultation: clear to auscultation bilaterally Cardio Palpation: normal PMI Rate: regular rate Rhythm: regular rhythm Heart sounds: S1 normal heart sound present, S2 normal heart sound present and no murmurs GI Palpation (GI): Soft to palpation, nontender and No hepatosplenomegaly present Auscultation: normal bowel sounds Rectal Exam - Male: Yes deferred Skin General skin exam: no rashes or lesions noted Neuro General: patient oriented x3, gait normal and moves all extremities Cranial nerves: Yes Equal, round and reactive pupils present Psych Appearance: grossly normal Mental Status: mental status grossly normal Assessment & Plan Assessment & Plan (1) Cirrhosis of liver without ascites: Code(s): K74.60 - Unspecified cirrhosis of liver (2) Screening for colon cancer: Comment: 06/27/20 Two medium to large sized polyps removed. Repeat colon was advised in 6 months - pt is overdue 08/2022 Repeat colon showed diverticulosis and no polyps Fu colon in 5 years. Code(s): Z12.11 - Encounter for screening for malignant neoplasm of colon (3) History of hepatitis C virus infection: Comment: SUSTAINED VIRAL CLEARANCE since 2012--Dr. Bosch Code(s): Z86.19 - Personal history of other infectious and parasitic diseases Plan 57 year old French-speaking male followed in GI for colon polyps and compensated cirrhosis due to past hepatitis-C.? Patient complains of decreased appetite and weight has been stable. Upper endoscopy findings as noted above ?REDUCING THE RISK OF LIVER PROGRESSION:??patient was advised to completely avoid use of alcohol. ?HCC SURVEILLANCE:?? the patient is at risk of developing hepatocellular carcinoma given the presence of cirrhosis and need 6 monthly imaging surveillance with either abdominal ultrasound (US) or multiphase cross-sectional imaging (CT or MRI).? 10/[address] SCAN showed a small hemangioma and no other lesions.? Pt was scheduled for an abdominal ultrasound in July, and missed his appointment - rescheduled on 11/22/22. QUESTION OF LIVER TRANSPLANTATION:?? As he has never had any hepatic decompensation, and continues to have good hepatic synthetic function with meld score of 8, liver transplantation does not need to be considered at this time. 08/2022 EGD (screen for varices) and a colonoscopy (Large TVA removed from the rectum during colonoscopy in 05/2020) were performed in results as noted above. Repeat colon in 5 years Follow-up in the GI clinic in 4 months. Medications: New famotidine 20 mg PO BID 90 days 180 tabs 3RF K21.9 - Gastro-esophageal reflux disease without esophagitis Coding Level of Care Code Est Pt Level 4 (16604) Diagnoses Cirrhosis of liver without ascites K74.60 Screening for colon cancer Z12.11 History of hepatitis C virus infection Z86.19 Time Spent (min) 22
[2022-10-28 08:16] VITALS: BP 123/77; PULSE 63
== END 2022-10-28 09:10 | disposition home or self-care (01) ==
PROVIDERS: PCP Internal Medicine; Visit Provider Internal Medicine Gastroenterology
DX: K74.60 Unspecified cirrhosis of liver (principal); Z12.11 Encounter for screening for malignant neoplasm of colon; Z86.19 Personal history of other infectious and parasitic diseases
CPT/HCPCS: 99214

== ENCOUNTER → 2022-10-28 08:02 | Outpatient (BNVA) | payer OTHER, SELFPAY | PROVIDERS: PCP Internal Medicine; Visit Provider Internal Medicine Gastroenterology | DX: K74.60 Unspecified cirrhosis of liver (principal); Z86.010 Personal history of colon polyps; Z86.19 Personal history of other infectious and parasitic diseases | CPT/HCPCS: 99212 ==

== ENCOUNTER 2022-11-22 09:09 | Outpatient (REF) | payer OTHER, SELFPAY ==
--- NOTE | ~2022-11-22 | US_ITS ---
EXAMINATION: US ABDOMEN COMPLETE CLINICAL INFORMATION: Unspecified cirrhosis of liver. Screen for HCC and ascites. COMPARISON: CT abdomen and pelvis with contrast 11/07/2020. Ultrasound abdomen complete 05/14/2020 and 12/20/2019. TECHNIQUE: Real-time imaging of the abdominal viscera. FINDINGS: PANCREAS: Normal. ABDOMINAL AORTA: The proximal, mid, and distal segments are normal in caliber. INFERIOR VENA CAVA: Visualized portions are normal. LIVER: The liver is not morphologically cirrhotic. The contour is smooth. Parenchymal echogenicity is normal. No focal hepatic lesion. There is no intrahepatic biliary duct dilatation seen. GALLBLADDER: Normal. The gallbladder is physiologically distended without evidence of stones, sludge, polyps, wall thickening or pericholecystic fluid. COMMON BILE DUCT: Normal in caliber measuring 0.7 cm in diameter. RIGHT KIDNEY: Small simple cyst in the upper pole measuring a millimeter. No follow-up imaging is recommended. No hydronephrosis or renal calculi. The kidney measures 9.6 cm in maximum dimension. LEFT KIDNEY: Normal. No hydronephrosis. No renal calculi or focal parenchymal lesions. The kidney measures 9.5 cm in maximum dimension. SPLEEN: Normal. The spleen measures 7.1 cm in maximum dimension. FREE FLUID: None. US/US abdomen complete IMPRESSION: No focal liver mass. No ascites.
== END 2022-11-22 09:10 | disposition home or self-care (01) ==
LOC: HO.US 09:09
PROVIDERS: PCP Internal Medicine; Visit Provider Internal Medicine Gastroenterology
DX: K74.60 Unspecified cirrhosis of liver (principal)
CPT/HCPCS: 76700

== ENCOUNTER 2024-03-14 16:59 | Outpatient (AMB) | payer OTHER, SELFPAY ==
--- NOTE | 2024-03-14 17:05 | A.OFFPC_ITS ---
Vital Signs 03/14/24 17:07 Height 5 ft 7 in Weight 131 lb BMI 20.5 BP 118/80 Blood Pressure Location Lt brachial Position Sitting Intake Visit Reasons: Annual Intake Note: Patient here for a physical exam Firearms Sales Associate Required: Yes Firearms Sales Associate Language: Surgery Technician Name: Arpita Hercules MD Information Interpreted: non-clinical & clinical Accompanied by: Self / Same As Patient Allergies No Known Allergies [No Known Allergies*] Allergy (Verified 03/14/24 17:16) Medication List - Last Reconciled 03/14/24 by Arpita Hercules MD No Known Home Meds Tobacco use date assessed: 03/14/24 Dental Screening Dental Screen Date: 03/14/24 Did you have a dental visit in the last 12 months?: No Did you have a dental problem in the last 6 months where you did not have access to dental care?: No Was dental information given to patient?: Patient has dentist HPI HPI Comments History of Present Illness Details The patient is a 58-year-old male presenting for his physical exam. He has chronic liver disease. The condition has been monitored for several years, with the patient undergoing a liver biopsy in 2010. He reports no significant change in symptoms since his last evaluation. There is no history of smoking, though the patient occasionally consumes alcohol during birthday and holiday celebrations but has never been a heavy drinker. The patient reports experiencing depressive symptoms, with a PHQ-9 score of 10, indicating mild depression. No prior interventions for depression were discussed. He also experiences symptoms of anxiety. Complains of left hip pain and will order an x-ray. Complains of skin lesions and will be referred to Dermatology. Colonoscopy done 2022 and next colonoscopy should be 2027. Tdap vaccine done 2015. Will have flu vaccine today. [facility] Medical History (Updated 03/14/24 @ 22:13 by Arpita Hercules MD) Screening for colon cancer History of hepatitis C virus infection Liver fibrosis Surgical History History of esophagogastroduodenoscopy (EGD) History of surgery Hx of colonoscopy History of liver biopsy Family History Father Medical history unknown Mother Heart problem Social History (Updated 03/14/24 @ 17:22 by Arpita Hercules MD) Household Members: Spouse, Family and Children Housing: Apartment Are you a primary resident care supervisor to a significant other at home: No Do you presently have visiting nurse or other home services: No Alcohol intake: current Alcohol intake frequency: holidays/special occasions only Alcohol type: beer Patient Tobacco Use Status: Never used Tobacco e-Cigarette/Vaping Use: Never Used Second Hand Smoke Exposure: No Substance Use Type: Marijuana service: No Current occupational status: employed Current occupational exposures/hazards: No Cognitive needs: No Hearing needs: No Vision needs: No Questionnaire PHQ-9 Over the last 2 weeks, how often have you been bothered by any of the following problems? 1. Little interest or pleasure in doing things: more than half the days 2. Feeling down, depressed, or hopeless: several days 3. Trouble falling or staying asleep, or sleeping too much: more than half the days 4. Feeling tired or having little energy: more than half the days 5. Poor appetite or overeating: several days 6. Feeling bad about yourself - or that you are a failure or have let yourself or your family down: several days 7. Trouble concentrating on things, such as reading the newspaper or watching television: several days 8. Moving or speaking so slowly that other people could have noticed. Or the opposite - being so fidgety or restless that you have been moving around a lot more than usual: not at all 9. Thoughts that you would be better off or of hurting yourself in some way: not at all Total score: 10 Depression Screening Interpretation: Positive Depression Screening Follow-up: Existing condition, Community Mental Health Worker F/U and Follow-up Visit Requested Depression Screening Done: Yes 57210 - PHQ-9 Billing: Yes Source: Developed by Drs. Rk Bunn, Clemencia Murray, Tavon Guillaume and colleagues, with an educational rosas from [employer]. Thrive Questionnaire Date Thrive assessed: 03/14/24 I am a: Patient What is your living situation today?: I have a steady place to live Within the past 12 months, did the food you bought not last and you didn't have the money to get more?: Sometimes True Within the past 12 months, did you worry whether your food would run out before you got money to buy more?: Sometimes True Do you have trouble paying for medicines?: Yes Do you have trouble getting transportation to medical appointments?: No Do you have trouble paying your heating and electricity bill?: No Do you have trouble taking care of your child, family member or friend?: No Do you have trouble with day-to-day activities such as bathing, preparing meals, shopping, managing finances, etc.?: No Are you currently unemployed and looking for a job?: Yes Are you interested in more education?: I choose not to answer this question Please select the resources that you would like help with: None Currently or been in a relationship where the following occur: No concerns reported THRIVE Score: 2 AUDIT C Alcohol Use Questionnaire (AUDIT-C) 1. How often do you have a drink containing alcohol?: Monthly or less 2. How many drinks containing alcohol do you have on a typical day when you are drinking?: 1 or 2 3. How often do you have six or more drinks on one occasion?: Never Total Score: 1 Score Reviewed/Action Taken: No RACQUEL-7 AMB Questionnaire RACQUEL-7 Date RACQUEL - 7 assessed: 03/14/24 Feeling nervous, anxious, or on edge: 0 = Not at all Not being able to stop or control worryin = Nearly every day Worrying too much about different things: 3 = Nearly every day Trouble relaxin = Nearly every day Being so restless that it is hard to sit still: 3 = Nearly every day Becoming easily annoyed or irritable: 0 = Not at all Feeling afraid as if something awful might happen: 3 = Nearly every day Total RACQUEL-7 score (0-4 normal; 5-9 mild; 10-14 moderate; 15-21 severe): 15 Source: Developed by Drs. Rk Bunn, Clemencia Murray, Tavon Guillaume and colleagues, with an educational rosas from [employer]. RACQUEL-7 Assessment Billing RACQUEL-7 Assessment Tool: RACQUEL-7 Assessment 31301 Physical exam (Primary Care) Vital Signs: Last Vital Signs BP 118/80 03/14/24 17:07 BMI result Body Mass Index 20.5 Tobacco/Smoking Status: Tobacco use Status Tobacco use date assessed 03/14/24 03/14/24 17:10 Patient Tobacco Use Status Never used Tobacco 03/14/24 17:22 e-Cigarette/Vaping Use Never Used 03/14/24 17:22 PHQ-9: PHQ-9 Score PHQ-9: Total score 10 03/14/24 17:35 Depression Screening Interpretation: Positive Depression Screening Follow-up: Existing condition, Community Mental Health Worker F/U and Follow-up Visit Requested Thrive Assessment: Date of Thrive Assessment Date Thrive assessed 03/14/24 03/14/24 17:10 Currently or been in a relationship where the following occur: No concerns reported Office Procedures Flu Questionnaire Does the patient have a severe egg allergy?: No Does the patient have severe life threatening allergies?: No Does the patient have a fever or illness today?: No Has the patient ever had Guillain-Andrew Syndrome?: No Has the patient ever had any past reaction to a flu shot?: No Immunizations Fluarix Triv [id number] (PF) 45 mcg (15 mcg x 3)/0.5 mL IM syringe Performing Provider: Arpita Hercules MD [facility] Administered by: ELIZABET Alvarez on 03/14/24 17:35 Dose Route Admin Location Dispensed Lot Number Expiration Date [facility] Transfer And Pumphouse Operator 0.5 mL IM Right Deltoid 0.5 mL [id number] 08/27/24 00980-381-[facility] Given Date VIS Provided VIS Publication Date 03/14/24 Single Vaccine 20 Eligibility Eligibility Date Funding Source Not [facility] Eligible 03/14/24 Private Coding Level of Care Code Est Pt Level 4 (73279) Est Pt Prev Care 18-39y(08492) Diagnoses Adult general medical exam Z00.00 Cirrhosis of liver without ascites K74.60 Mild major depression F32.0 Left hip pain M25.552 Skin lesion L98.9 Additional Codes RACQUEL-7 Assessment Billing - RACQUEL-7 Assessment Tool: RACQUEL-7 Assessment 83717 ([id number]) PHQ-9 - 44222 - PHQ-9 Billing: Yes ([id number]) Time Spent (min) 34 Assessment & Plan Assessment & Plan (1) Adult general medical exam: Code(s): Z00.00 - Encounter for general adult medical examination without abnormal findings Category: Medical (2) Cirrhosis of liver without ascites: Code(s): K74.60 - Unspecified cirrhosis of liver Category: Medical (3) Mild major depression: Code(s): F32.0 - Major depressive disorder, single episode, mild Category: Medical (4) Left hip pain: Code(s): M25.552 - Pain in left hip Category: Medical (5) Skin lesion: Code(s): L98.9 - Disorder of the skin and subcutaneous tissue, unspecified Category: Medical Plan - Monitor chronic liver disease with laboratory investigations, including tests for cholesterol, blood sugar, kidney, and liver function. - Address mild depression and anxiety; offer pharmacotherapy if patient agrees. - Schedule and follow up on laboratory tests to ensure comprehensive evaluation of liver function. Patient was informed and verbally consented to the use of an ambient scribe for clinic note documentation during this visit. I discussed with the patient his current symptoms and the importance of regular monitoring of his liver condition. We reviewed his occasional alcohol consumption and its implications for liver health. Likewise, I explained the need for laboratory evaluations to adequately assess his cholesterol, kidney, and liver functions, considering his ongoing liver disease. We addressed his depression, informing him of the option for pharmacotherapy, and discussed a low-dose medication should he choose to pursue this treatment. Anxiety was also discussed, with reassurances given that it will be monitored and managed accordingly. We reviewed his vaccination status and considered updating his tetanus shot. Orders: Orders Lipid Panel Today Z00.00 - Encounter for general adult medical examination without abnormal findings Influenza [id number] Immunization Today Z23 - Encounter for immunization US abdomen comp w elastography Today K74.60 - Unspecified cirrhosis of liver Comprehensive [place]. Panel Fast Today Z00.00 - Encounter for general adult medical examination without abnormal findings XR hip LT min 2V Today M25.552 - Pain in left hip Referrals Dermatology Referral L98.9 - Disorder of the skin and subcutaneous tissue, unspecified Psychiatry Outpatient Consultation Service F32.0 - Major depressive disorder, single episode, mild Medications: New betamethasone valerate 0.1% 1 appl topical DAILY PRN 15 grams 0RF skin irritation 2 weeks L98.9 - Disorder of the skin and subcutaneous tissue, unspecified Patient Instructions: - Arrange for laboratory tests for liver, kidney, cholesterol, and blood sugar as planned. - Seek assistance if depressive or anxiety symptoms worsen. - Continue to abstain from heavy alcohol consumption. - Consider updating tetanus vaccination if due. - Follow up with scheduled appointments to review lab results and ongoing health needs.
[2024-03-14 17:07] VITALS: BP 118/80; BMI 20.5
== END 2024-03-14 17:39 | disposition home or self-care (01) ==
PROVIDERS: PCP Internal Medicine; Visit Provider Internal Medicine
DX: Z00.00 Encounter for general adult medical examination without abnormal findings (principal); K74.60 Unspecified cirrhosis of liver; F32.0 Major depressive disorder, single episode, mild; M25.552 Pain in left hip; L98.9 Disorder of the skin and subcutaneous tissue, unspecified; Z23 Encounter for immunization

== ENCOUNTER → 2024-03-14 16:59 | Outpatient (BNVA) | payer OTHER, SELFPAY | PROVIDERS: PCP Internal Medicine; Visit Provider Internal Medicine | DX: Z00.00 Encounter for general adult medical examination without abnormal findings (principal); K74.60 Unspecified cirrhosis of liver; F32.0 Major depressive disorder, single episode, mild; M25.552 Pain in left hip; L98.9 Disorder of the skin and subcutaneous tissue, unspecified; Z23 Encounter for immunization | CPT/HCPCS: 90471; 90656; 96127; 99212; 99396 ==

== ENCOUNTER 2024-03-16 08:27 | Outpatient (REF) | payer OTHER, SELFPAY ==
--- NOTE | ~2024-03-16 | XR_ITS ---
EXAMINATION: XR HIP, LEFT CLINICAL INFORMATION: M25.552 - Pain in left hip COMPARISON: None TECHNIQUE: Two views of the left hip. FINDINGS: There is decrease in left hip joint space without any periarticular spurring. No visible acute fracture, dislocation or lytic process seen. The soft tissues are normal. XR/XR hip LT min 2V IMPRESSION: Unremarkable left hip exam. Electronically signed by: Chino Damon MD 03/19/2024 09:24 AM BLADE
[2024-03-16 09:36] LABS: Alanine Aminotransferase 28 U/L (0-40); Albumin Level 4.4 g/dL (3.5-5.0); Alkaline Phosphatase 81 U/L (39-117); Anion Gap 9 (12-20); Aspartate Amino Transferase 33 U/L (5-37); Bilirubin Total 0.6 mg/dL (0.0-1.0); Blood Urea Nitrogen 15 mg/dL (9-16); Calcium 9.3 mg/dL (8.4-10.2); Carbon Dioxide 24 mmol/L (22-29); Chloride 110 mmol/L (96-108); Cholesterol 155 mg/dL (<200); Estimated Glomerular Filt Rate > 60; Glucose Fasting 85 mg/dL (60-99); HDL Cholesterol 53 mg/dL (>40); LDL Cholesterol Calculated 73 mg/dL (<100); Potassium 4.4 mmol/L (3.3-5.1); Sodium 139 mmol/L (135-145); Triglycerides 146 mg/dL (<150)
== END 2024-03-16 08:28 | disposition home or self-care (01) ==
LOC: HO.XRAY 08:27
PROVIDERS: PCP Internal Medicine; Visit Provider Internal Medicine
DX: Z00.00 Encounter for general adult medical examination without abnormal findings (principal); M25.552 Pain in left hip
CPT/HCPCS: 36415; 73502; 80053; 80061

== ENCOUNTER → 2024-03-16 08:52 | Outpatient (BNV) | payer OTHER, SELFPAY | PROVIDERS: PCP Internal Medicine; Visit Provider Radiology Diagnostic Radiology | DX: M25.552 Pain in left hip (principal) | CPT/HCPCS: 73502 ==

== ENCOUNTER 2024-04-11 07:58 | Outpatient (REF) | payer OTHER, SELFPAY ==
--- OUTSIDE RECORDS SUMMARY | 2024-04-11 08:01 | XMS_ITS | Clinical Summary ---
Author Organization [employer] Address [address] [place] [address] Care Team Providers Care Can Bander Operator Name Role Phone Unavailable Primary Care Provider Unavailabl e Social History Tobacco Use Types Packs/Day Years Used Date Smoking Tobacco: Never Assessed Sex and Gender Information Value Date Recorded Sex Assigned at Male 12/28/2021 10:15 AM EDT Legal Sex Male 10:15 AM EDT Gender Identity Choose not to disclose 2 10:15 AM EDT Sexual Orientation Don't know 12/28/2021 10 :15 AM EDT Plan of Treatment Health Maintenance Due Date Last Done Comments CT Colonography 1963 Colonoscopy 1963 Colorectal Cancer Screening 1963 Depression Screening 1963 FIT DNA/Cologuard 1963 FIT 1963 FOBT 1963 Lipid Panel 1963 Sigmoidoscopy 1963 Alcohol/Substance Use Screening 1975 Tobacco Screening 1975 DTaP/Tdap/Td Vaccines (1 - Tdap) 05/10/1982 Pneumococcal Vaccine: 50+ Years (1 of 1 - PCV) 05/10/2013 Zoster Vaccines (1 of 2) 05/10/2013 COVID-19 Vaccine ( - 2023-2 5 season) 2023 Influenza Vaccine (#1) 2023 1, 01/08/2015, 02/01/2012 RSV Patients and Patients Aged 60 years or older (1 - 1-dose 75+ series) 05/10/2038 HIB Vaccines Aged Out No longer eligi ble based on patient's age to complete this topic HPV Vaccines Aged Out No longer eligi ble based on patient's age to complete this topic Hepatitis A Vaccines Aged Out No long er eligible based on patient's age to complete this topic Hepatitis B Vaccines Aged Out No long er eligible based on patient's age to complete this topic IPV Vaccines Aged Out No longer eligi ble based on patient's age to complete this topic Meningococcal Vaccine Aged Out No [place] eligible based on patient's age to complete this topic Pneumococcal Vaccine: Pediatrics (0 to 5 Years) and At-Risk Patients (6 to 49) Years) Aged Out No longer eligible b ased on patient's age to complete this topic RSV under 20 months Aged Out No longe r eligible based on patient's age to complete this topic Rotavirus Vaccines Aged Out No longer eligible based on patient's age to complete this topic
--- OUTSIDE RECORDS SUMMARY | 2024-04-11 08:01 | XMS_ITS | Encounter Summary ---
Author Organization [employer] [facility] Address [address] [facility] [address] [place] [address] Care Team Providers Care Drupal Developer Name Role Phone Unavailable Primary Care Provider Unavailabl e Encounter Details Date Type Department Care Team (Latest Contact Info) Description 11/12/2021 Abstract [facility] CONVERSIONS Dental, Provider, DDS Social History Tobacco Use Types Packs/Day Years Used Date Smoking Tobacco: Never Assessed Sex and Gender Information Value Date Recorded Sex Assigned at Male 12/28/2021 10:15 AM EDT Legal Sex Male 10:15 AM EDT Gender Identity Choose not to disclose 10:15 AM EDT Sexual Orientation Don't know 12/28/2021 10 :15 AM EDT documented as of this encounter Plan of Treatment Not on file documented as of this encounter Visit Diagnoses Not on filedocumented in this encounter
--- OUTSIDE RECORDS SUMMARY | 2024-04-11 08:01 | XMS_ITS | Encounter Summary ---
Author Organization [facility] Address [address] [place] [address] Care Team Providers Care Fashion Designer Name Role Phone Unavailable Primary Care Provider Unavailabl e Encounter Details Date Type Department Care Team (Latest Contact Info) Description 03/14/2020 Abstract [facility] CONVERSIONS Dental, Provider, DDS Social History Tobacco [...]
== END 2024-04-11 07:59 | disposition home or self-care (01) ==
LOC: HO.US 07:58
PROVIDERS: PCP Internal Medicine; Visit Provider Internal Medicine
DX: Z13.89 Encounter for screening for other disorder (principal)

== ENCOUNTER 2024-05-07 07:56 | Outpatient (REF) | payer OTHER, SELFPAY ==
--- NOTE | ~2024-05-07 | US_ITS ---
EXAMINATION: US ABDOMEN COMPLETE WITH LIVER ELASTOGRAPHY HISTORY: K74.60 - Unspecified cirrhosis of liver TECHNIQUE: Real-time grayscale ultrasound imaging of the abdomen was performed and images were reviewed. COMPARISON: Comparison is made with the prior examination dated 11/22/2022. FINDINGS: Liver: The right lobe of the liver measures 14.4 cm in size. The left lobe of the liver measures 8.7 cm in size. The liver demonstrates normal homogeneous echotexture. No focal mass or intrahepatic biliary ductal dilatation is identified. There is normal hepatopedal flow in the portal vein. Ultrasound elastography of the liver was performed with 10 separate measurements of the liver parenchyma with the patient in the supine position. Measurements were obtained approximately 2 cm below Delmis's capsule and perpendicular to the capsule. Images are of satisfactory quality. The median shear wave velocity is 1.48 m/s. The interquartile range/median (IQR/median) is 0.14. Gallbladder and biliary tree: The gallbladder is unremarkable, without evidence of calculi, wall thickening, or pericholecystic fluid. There is no sonographic Snyder sign. The common bile duct is normal in caliber measuring 1 mm. Kidneys: The right kidney measures 9.3 cm in length, and demonstrates a 1.1 cm upper pole cyst. The left kidney measures 9.4 cm in length and demonstrates an 8 mm upper pole cyst. There is no hydronephrosis, mass, or calculi. Pancreas: The pancreatic head, neck, and body are unremarkable. The pancreatic tail is obscured by bowel gas. Spleen: The spleen is normal in size and contour, measuring 6.8 cm in length. Abdominal aorta and inferior vena cava: The visualized portions of the abdominal aorta and inferior vena cava are normal in caliber. There is no free fluid in the abdomen. US/US abdomen comp w elastography IMPRESSION: Bilateral renal cysts as described. Otherwise unremarkable abdominal ultrasound. The median shear wave velocity in the liver is 1.48 m/s, corresponding to a median liver stiffness of 6.70 kPa. The IQR/median value is 0.14. This is indicative of a quality data set. Findings are indicative of a low elastography value which rules out advanced chronic liver disease in asymptomatic patients. REFERENCE: Society of Radiologists in Ultrasound Liver Stiffness Thresholds (2020): LIVER STIFFNESS THRESHOLDS: *Shear wave velocity less than 1.3 m/s (Liver Stiffness equal or less than 5 kPa): High probability of being normal. *Shear wave velocity less than 1.7 m/s (Liver Stiffness less than 9 kPa): In the absence of other known clinical signs, rules out compensated advanced chronic liver disease. *Shear wave velocity between 1.7-2.1 m/s (Liver Stiffness 9-13 kPa): Suggestive of compensated advanced chronic liver disease but need further test for confirmation. *Shear wave velocity between 2.1-2.4 m/s (Liver Stiffness 13-17 kPa): Rules in compensated advanced chronic liver disease. *Shear wave velocity greater than 2.4 m/s (Liver Stiffness over 17 kPa): Suggestive of clinically significant portal hypertension. QUALITY OF DATA SET: *IQR/Median value equal or less than 0.15 implies a quality data set. *IQR/Median value over 0.15 implies a poor quality data set. SIGNIFICANT CHANGE FROM PRIOR EXAM: Significant change if liver stiffness measurement is 10% or greater from prior exam. OTHER CONSIDERATIONS: The stage of liver fibrosis may be overestimated in the setting of acute hepatitis, liver inflammation, elevated liver function tests, hepatic vascular congestion, obstructive cholestasis, non-fasting state, and infiltrative diseases such as amyloidosis and lymphoma. In some patients with NAFLD, the liver stiffness thresholds for compensated advanced chronic liver disease may be lower. In causes other than viral hepatitis and NAFLD, liver stiffness thresholds are not well established. Electronically signed by: Rk Oneil MD 05/07/2024 02:19 PM EDT
--- OUTSIDE RECORDS SUMMARY | 2024-05-07 08:00 | XMS_ITS | Encounter Summary ---
Author Organization [employer] [facility] Address [address] [place] [address] Care Team Providers Care Line Patroller Name Role Phone Unavailable Primary Care Provider Unavailabl e Encounter Details Date Type Department Care Team (Latest Contact Info) Description 11/12/[address] [facility] CONVERSIONS Dental, Provider, DDS Social History [...]
--- OUTSIDE RECORDS SUMMARY | 2024-05-07 08:00 | XMS_ITS | Clinical Summary ---
Author Organization [employer] Address [address] [place] [address] Care Team Providers Care Professor Of Forestry Name Role Phone Unavailable Primary Care Provider [...]
--- OUTSIDE RECORDS SUMMARY | 2024-05-07 08:00 | XMS_ITS | Encounter Summary ---
Author Organization [employer] [facility] Address [address] [facility] [address] [place] [address] Care Team Providers Care Fermenting Cellars Supervisor Name Role Phone Unavailable Primary Care Provider Unavailabl e Encounter Details Date Type Department Care Team (Latest Contact Info) Description 03/14/2020 Abstract [facility] CONVERSIONS Dental, Provider, DDS Social History Tobacco [...]
== END 2024-05-07 07:57 | disposition home or self-care (01) ==
LOC: HO.US 07:56
PROVIDERS: PCP Internal Medicine; Visit Provider Internal Medicine
DX: K74.60 Unspecified cirrhosis of liver (principal)
CPT/HCPCS: 76700; 76981

== ENCOUNTER → 2024-05-07 07:58 | Outpatient (BNV) | payer OTHER, SELFPAY | PROVIDERS: PCP Internal Medicine; Visit Provider Radiology Diagnostic Radiology | DX: N28.1 Cyst of kidney, acquired (principal) | CPT/HCPCS: 76700 ==